=== PATIENT | male | born 1950 | race Caucasian/White ===

== ENCOUNTER → 2023-10-01 | Outpatient (REF) | payer BC, MEDICARE | LOC: M LAB REF 18:13 | PROVIDERS: ATTEND Physician Assistant Medical | DX: R19.7 Diarrhea, unspecified (principal) ==

== ENCOUNTER 2023-10-04 19:37 | Inpatient (IN) | payer MEDICARE ==
[~2023-10-04] VITALS: Ht 180.3 cm; Wt 85.1 kg
[2023-10-04] MEDS: NS 1,000 ML IV ONE (21:25)
[2023-10-04 21:31] LABS: BASO % 0.3 % (0.0-1.0); EOS # 0.1 10^3/uL (0.0-0.5); HEMATOCRIT 31.4 % (42.0-52.0); LYMPH # 1.5 10^3/uL (1.5-5.0); LYMPH % 19.2 % (24.0-44.0); MEAN CORPUSCULAR VOLUME 94.3 fl (80.0-96.0); MONO # 0.8 10^3/uL (0.0-0.8); MONO % 10.3 % (2.0-8.0); NEUTROPHILS # 5.3 10^3/uL (1.5-8.5); NEUTROPHILS % 68.8 % (36.0-66.0); PLATELET COUNT, AUTOMATED 190 10^3/uL (150-450); RED BLOOD COUNT 3.33 10^6/uL (4.30-6.10); WHITE BLOOD COUNT 7.7 10^3/uL (4.0-10.0)
[2023-10-04 21:37] LABS: ALBUMIN 4.3 G/DL (3.2-5.2); BILIRUBIN,TOTAL 0.8 MG/DL (0.3-1.2); CALCIUM LEVEL 9.4 MG/DL (8.3-10.6); CREATININE FOR GFR 1.57 MG/DL (0.70-1.30); GLOMERULAR FILTRATION RATE 46.1 (>42); POTASSIUM SERUM 3.8 MMOL/L (3.5-5.1); TOTAL PROTEIN 7.1 G/DL (5.7-8.2)
[2023-10-04 21:41] LABS: MB/CK RELATIVE INDEX 1.09 (< OR =4)
[2023-10-05] MEDS ORDERED: ACETAMINOPHEN TAB 650MG DOSE (2X325MG) PO PRN (02:30)
[2023-10-05] MEDS ORDERED: ATEN100T PO (03:03)
[2023-10-05] MEDS ORDERED: LISI20TA33 PO (03:03)
[2023-10-05] MEDS ORDERED: ROSU40TA63 PO (03:03)
[2023-10-05] MEDS ORDERED: ALLO10TA PO (03:03)
[2023-10-05] MEDS ORDERED: HYDR-3490 PO (03:03)
[2023-10-05] MEDS ORDERED: DICY20TA3 PO (03:03)
[2023-10-05] MEDS ORDERED: CIPR-249 PO (03:03)
[2023-10-05] MEDS ORDERED: OMEG10002 PO (03:05)
[2023-10-05] MEDS ORDERED: GNP1000T11 PO (03:05)
[2023-10-05] MEDS ORDERED: MULT-40 PO (03:05)
[2023-10-05] MEDS ORDERED: HOME MED LIST COMPLETE! XX SCH (03:10)
[2023-10-05 03:17] LABS: CALCIUM LEVEL 9.3 MG/DL (8.3-10.6); CREATININE FOR GFR 1.47 MG/DL (0.70-1.30); GLOMERULAR FILTRATION RATE 49.7 (>42)
[2023-10-05 03:30] LABS: PERCENT SATURATION 27.3 % (19.7-50.0)
[2023-10-05 06:08] LABS: HEMATOCRIT 29.7 % (42.0-52.0); HEMOGLOBIN 10.7 g/dl (13.5-17.5); MEAN CORPUSCULAR HEMOGLOBIN 33.8 pg (27.0-33.0); MEAN CORPUSCULAR VOLUME 93.7 fl (80.0-96.0); PLATELET COUNT, AUTOMATED 161 10^3/uL (150-450); RED BLOOD COUNT 3.17 10^6/uL (4.30-6.10); WHITE BLOOD COUNT 5.8 10^3/uL (4.0-10.0)
[2023-10-05 06:40] LABS: CALCIUM LEVEL 9.2 MG/DL (8.3-10.6); CREATININE FOR GFR 1.38 MG/DL (0.70-1.30); GLOMERULAR FILTRATION RATE 53.5 (>42); MAGNESIUM LEVEL 1.7 MG/DL (1.8-2.4)
[2023-10-05 06:41] LABS: THYROID STIMULATING HORMONE 4.234 uIU/ML (0.55-4.78)
[2023-10-05] MEDS: NS 1,000 ML IV SCH (07:45)
[2023-10-05] MEDS: MAG SULF 1GM/100ML (MAG RUN) 1 GM in IV 1 EA IV ONE (07:45)
[2023-10-05] MEDS: OMEGA-3 1000MG CAPSULE PO SCH (09:52)
[2023-10-05] MEDS: atenoloL 50 MG TAB PO SCH (09:54)
[2023-10-05] MEDS: ENOXAPARIN 40MG/0.4ML SYRINGE (J1650 PER 10MG) SC SCH (09:54)
[2023-10-05 10:16] LABS: CALCIUM LEVEL 9.3 MG/DL (8.3-10.6); CREATININE FOR GFR 1.39 MG/DL (0.70-1.30); POTASSIUM SERUM 4.2 MMOL/L (3.5-5.1)
[2023-10-05 14:01] LABS: CREATININE FOR GFR 1.38 MG/DL (0.70-1.30); GLOMERULAR FILTRATION RATE 53.5 (>42); POTASSIUM SERUM 4.2 MMOL/L (3.5-5.1)
[2023-10-05 14:30] VITALS: BP 136/77; TEMP 97.5; O2SAT 99
[2023-10-05 19:40] VITALS: BP 113/59; TEMP 97.5; O2SAT 97
[2023-10-05] MEDS: ROSUVASTATIN 10 MG TAB (CRESTOR) PO SCH (20:36)
[2023-10-05 21:42] LABS: CALCIUM LEVEL 8.6 MG/DL (8.3-10.6); CREATININE FOR GFR 1.32 MG/DL (0.70-1.30); GLOMERULAR FILTRATION RATE 56.3 (>42)
[2023-10-06 01:48] LABS: CALCIUM LEVEL 8.6 MG/DL (8.3-10.6); CREATININE FOR GFR 1.31 MG/DL (0.70-1.30); GLOMERULAR FILTRATION RATE 56.8 (>42); POTASSIUM SERUM 4.3 MMOL/L (3.5-5.1)
[2023-10-06 03:30] VITALS: BP 108/59; TEMP 97.1; O2SAT 99
[2023-10-06 07:52] LABS: CORTISOL AM 32.7 UG/DL (4.3-22.4)
[2023-10-06] MEDS: SIMETHICONE 80MG CHEW TAB PO ONE (09:31)
[2023-10-06] MEDS: METOCLOPRAMIDE INJ 10MG/2ML VIAL IV ONE (09:31)
[2023-10-06 12:00] VITALS: BP 127/68; TEMP 96.8; O2SAT 96
[2023-10-06 12:20] LABS: CALCIUM LEVEL 9.6 MG/DL (8.3-10.6); CREATININE FOR GFR 1.48 MG/DL (0.70-1.30); GLOMERULAR FILTRATION RATE 49.3 (>42); POTASSIUM SERUM 4.5 MMOL/L (3.5-5.1)
[2023-10-06] MEDS ORDERED: ONDANSETRON 4MG 2ML VIAL IV PRN (13:05)
[2023-10-06 13:41] LABS: CALCIUM LEVEL 8.9 MG/DL (8.3-10.6); CREATININE FOR GFR 1.46 MG/DL (0.70-1.30); GLOMERULAR FILTRATION RATE 50.1 (>42); POTASSIUM SERUM 4.5 MMOL/L (3.5-5.1)
[2023-10-06] MEDS: SIMETHICONE 80MG CHEW TAB PO PRN (19:09)
[2023-10-06 20:20] VITALS: BP 103/61; TEMP 97.9; O2SAT 99
[2023-10-07 01:08] LABS: CREATININE FOR GFR 1.46 MG/DL (0.70-1.30); GLOMERULAR FILTRATION RATE 50.1 (>42)
[2023-10-07 03:30] VITALS: BP 104/62; TEMP 97.3; O2SAT 99
[2023-10-07 04:00] VITALS: BP 104/62; TEMP 97.3; O2SAT 99
[2023-10-07 08:24] LABS: HEMATOCRIT 31.6 % (42.0-52.0); MEAN CORPUSCULAR HEMOGLOBIN 33.1 pg (27.0-33.0); MEAN CORPUSCULAR HGB CONC 34.8 g/dl (32.0-36.5); MEAN CORPUSCULAR VOLUME 95.2 fl (80.0-96.0); PLATELET COUNT, AUTOMATED 188 10^3/uL (150-450); RED BLOOD COUNT 3.32 10^6/uL (4.30-6.10); WHITE BLOOD COUNT 5.9 10^3/uL (4.0-10.0)
[2023-10-07 08:48] LABS: CALCIUM LEVEL 8.9 MG/DL (8.3-10.6); CREATININE FOR GFR 1.38 MG/DL (0.70-1.30); GLOMERULAR FILTRATION RATE 53.5 (>42)
[2023-10-07] MEDS: amLODIPine 5 MG TAB PO SCH (09:11)
[2023-10-07 12:00] VITALS: BP 142/71; TEMP 97.7; O2SAT 100
[2023-10-07] MEDS: MOM 30ML SUSPENSION UDC PO PRN (18:21)
[2023-10-07 19:45] VITALS: BP 142/70; TEMP 97; O2SAT 99
[2023-10-07 20:00] VITALS: BP 142/70; TEMP 97; O2SAT 99
[2023-10-08 04:38] VITALS: BP 145/71; TEMP 98.1; O2SAT 97
[2023-10-08 08:20] VITALS: BP 144/70
[2023-10-08 12:00] VITALS: BP 145/72; TEMP 97.5; O2SAT 99
[2023-10-08] MEDS ORDERED: AMLO1TAB24 PO (14:59)
== END 2023-10-08 14:18 | disposition home or self-care (01) | DRG 641 ==
LOC: M ED 19:37 → M ED INP 19:38 → OBSVTOIN 10-05 11:23 → M MSPAV 10-05 14:27
PROVIDERS: ADMIT Internal Medicine; ATTEND Family Medicine
DX: E87.1 Hypo-osmolality and hyponatremia (principal); E86.0 Dehydration; N18.9 Chronic kidney disease, unspecified; I12.9 Hypertensive chronic kidney disease with stage 1 through stage 4 chronic kidney disease, or unspecified chronic kidney disease; M10.9 Gout, unspecified; E78.5 Hyperlipidemia, unspecified; D64.9 Anemia, unspecified; Z79.899 Other long term (current) drug therapy; Z11.52 Encounter for screening for COVID-19; T50.2X5A Adverse effect of carbonic-anhydrase inhibitors, benzothiadiazides and other diuretics, initial encounter

== ENCOUNTER → 2023-10-04 | Outpatient (CLI) | payer MEDICARE ==
[~2023-10-04] MED LIST: ALLO10TA PO; ATEN100T PO; CIPR-249 PO; DICY20TA3 PO; GNP1000T11 PO; HYDR-3490 PO; LISI20TA33 PO; MULT-40 PO; OMEG10002 PO; ROSU40TA63 PO
[2023-10-04 16:15] LABS: BASO % 0.5 % (0.0-1.0); EOS # 0.1 10^3/uL (0.0-0.5); EOS % 0.8 % (0.0-3.0); HEMATOCRIT 31.2 % (42.0-52.0); HEMOGLOBIN 11.2 g/dl (13.5-17.5); LYMPH # 1.3 10^3/uL (1.5-5.0); LYMPH % 20.1 % (24.0-44.0); MEAN CORPUSCULAR HGB CONC 35.9 g/dl (32.0-36.5); MEAN CORPUSCULAR VOLUME 94.8 fl (80.0-96.0); MONO # 0.6 10^3/uL (0.0-0.8); MONO % 9.7 % (2.0-8.0); NEUTROPHILS # 4.3 10^3/uL (1.5-8.5); NEUTROPHILS % 68.6 % (36.0-66.0); PLATELET COUNT, AUTOMATED 188 10^3/uL (150-450); RED BLOOD COUNT 3.29 10^6/uL (4.30-6.10); WHITE BLOOD COUNT 6.2 10^3/uL (4.0-10.0)
[2023-10-04 16:31] LABS: ERYTHROCYTE SEDIMENTATION RATE 20 mm/hr (0-20)
[2023-10-04 16:41] LABS: ALBUMIN 4.3 G/DL (3.2-5.2); BILIRUBIN,TOTAL 0.8 MG/DL (0.3-1.2); CALCIUM LEVEL 9.5 MG/DL (8.3-10.6); CREATININE FOR GFR 1.62 MG/DL (0.70-1.30); GLOMERULAR FILTRATION RATE 44.4 (>42); TOTAL PROTEIN 7.1 G/DL (5.7-8.2)
== END ==
LOC: M LAB 15:39
PROVIDERS: ATTEND Physician Assistant Medical
DX: R19.7 Diarrhea, unspecified (principal); E86.0 Dehydration

== ENCOUNTER 2024-01-15 19:40 | Emergency (ER) | payer MEDICARE ==
[~2024-01-15] VITALS: Ht 179.1 cm; Wt 86.1 kg
[~2024-01-15 19:40] MED LIST changes: +AMLO1TAB24 PO; -ROSU40TA63 PO; +ROSU40TA81 PO
[2024-01-15] MEDS: diphenhydrAMINE 50MG/ML VIAL IV ONE (20:45)
[2024-01-15] MEDS: methylPREDNISolone 125MG 2ML VIAL IV ONE (20:45)
[2024-01-15] MEDS: FAMOTIDINE 20MG/2ML VIAL IVP ONE (20:49)
[2024-01-15] MEDS: TRANEXAMIC ACID INJection 1,000 MG in D5W MINI-BAG PLUS 100 ML IV ONE (20:50)
[2024-01-15 21:16] LABS: BASO % 0.4 % (0.0-1.0); EOS # 0.2 10^3/uL (0.0-0.5); HEMATOCRIT 34.9 % (42.0-52.0); LYMPH # 2.1 10^3/uL (1.5-5.0); LYMPH % 26.7 % (24.0-44.0); MEAN CORPUSCULAR HEMOGLOBIN 33.9 pg (27.0-33.0); MEAN CORPUSCULAR HGB CONC 34.4 g/dl (32.0-36.5); MEAN CORPUSCULAR VOLUME 98.6 fl (80.0-96.0); MONO # 0.7 10^3/uL (0.0-0.8); NEUTROPHILS # 4.7 10^3/uL (1.5-8.5); NEUTROPHILS % 61.6 % (36.0-66.0); PLATELET COUNT, AUTOMATED 168 10^3/uL (150-450); RED BLOOD COUNT 3.54 10^6/uL (4.30-6.10); WHITE BLOOD COUNT 7.7 10^3/uL (4.0-10.0)
[2024-01-15 21:25] LABS: ERYTHROCYTE SEDIMENTATION RATE 13 mm/hr (0-20)
[2024-01-15 21:42] LABS: C REACTIVE PROTEIN QUANTITATIV < 0.40 MG/DL (<1.0)
[2024-01-15 21:43] LABS: BLOOD UREA NITROGEN 29 MG/DL (9-23); CALCIUM LEVEL 9.1 MG/DL (8.3-10.6); CARBON DIOXIDE LEVEL 25 MMOL/L (20-31); CHLORIDE LEVEL 110 MMOL/L (98-107); CREATININE FOR GFR 1.59 MG/DL (0.70-1.30); GLOMERULAR FILTRATION RATE 45.4 (>42); GLUCOSE, FASTING 89 MG/DL (74-106); POTASSIUM SERUM 3.7 MMOL/L (3.5-5.1); SODIUM LEVEL 140 MMOL/L (136-145)
[2024-01-15] MEDS ORDERED: PRED20TA PO (23:09)
[2024-01-15 23:19] VITALS: BP 124/87; TEMP 98.8; O2SAT 98
[2024-01-19 00:28] LABS: COAGULATION FACTOR XII ACTIVIT 93 % normal (50-150)
== END 2024-01-15 23:22 | disposition home or self-care (01) ==
LOC: M ED 19:40
DX: T78.3XXA Angioneurotic edema, initial encounter (principal); I10 Essential (primary) hypertension; Z79.899 Other long term (current) drug therapy
CPT/HCPCS: 80048; 83519; 85025; 85280; 85652; 86140; 86160; 86161; 96365; 96375; 99291; J1200; J2919